=== PATIENT | male | born 1970 | race Caucasian/White ===

== ENCOUNTER 2017-03-29 14:42 | Emergency (ER) | payer OTHER ==
[~2017-03-29] VITALS: Ht 170.2 cm; Wt 68.9 kg
[2017-03-29] MEDS ORDERED: LIDOCAINE 1%, 20ML SQ ONE (15:30)
[2017-03-29] MEDS ORDERED: BACITRACIN ZINC OINT 500U/GM, 0.9 GM ONE (15:32)
[2017-03-29 15:53] VITALS: BP 121/72
== END 2017-03-29 15:58 | disposition home or self-care (01) ==
LOC: ED 15:52
DX: S61.012A Laceration without foreign body of left thumb without damage to nail, initial encounter (principal); G89.11 Acute pain due to trauma; W45.8XXA Other foreign body or object entering through skin, initial encounter; W26.8XXA Contact with other sharp object(s), not elsewhere classified, initial encounter; Y93.89 Activity, other specified; Y92.89 Other specified places as the place of occurrence of the external cause; Y99.8 Other external cause status
CPT/HCPCS: 12002